=== PATIENT | female | born 1955 | race Caucasian/White ===

== ENCOUNTER 2020-01-24 16:01 | Inpatient (IN) ==
[2020-01-24] MEDS ORDERED: 0.9 % Sodium Chloride 500 ML IVC ONE (16:39)
[2020-01-24] MEDS ORDERED: 0.9 % Sodium Chloride 1,000 ML IVC SCH (16:45)
[2020-01-24 16:59] LABS: BUN/Creatinine Ratio 19 (6-26); Blood Urea Nitrogen 7 mg/dL (8-23); Calcium 8.1 mg/dL (8.6-10.3); Carbon Dioxide 29 mEq/L (23-29); Chloride 82 mEq/L (98-107); Glucose 95 mg/dL (70-105); Osmolality,Calculated 240 (280-300); Potassium 3.7 mEq/L (3.5-5.1); Sodium 116 mEq/L (136-145); eGFR For African Americans > 60 (> 60); eGFR For Non-African Americans > 60 (> 60)
[2020-01-24] MEDS ORDERED: Ondansetron 4 MG/2 ML VIAL IVP PRN (17:59)
[2020-01-24] MEDS ORDERED: Naloxone 0.4 MG/ML INJ IVP PRN (17:59)
[2020-01-24] MEDS ORDERED: Mag Hydrox/Al Hydrox/Simeth 30 ML UDC PO PRN (17:59)
[2020-01-24] MEDS ORDERED: MOM Conc 10 ML UD.LIQ PO PRN (17:59)
[2020-01-24] MEDS ORDERED: tiZANidine 4 MG TABLET PO PRN (18:01)
[2020-01-24] MEDS ORDERED: Albuterol 2.5 MG/3 ML NEBULIZER IH PRN (19:17)
[2020-01-24] MEDS ORDERED: Gabapentin 400 MG CAPSULE PO SCH (21:00)
[2020-01-24] MEDS: *HR* OxyCODONE/APAP 7.5/325 TABLET PO PRN (21:31)
[2020-01-24 22:41] LABS: BUN/Creatinine Ratio 18 (6-26); Blood Urea Nitrogen 6 mg/dL (8-23); Calcium 8.4 mg/dL (8.6-10.3); Carbon Dioxide 30 mEq/L (23-29); Chloride 90 mEq/L (98-107); Glucose 100 mg/dL (70-105); Osmolality,Calculated 258 (280-300); Potassium 3.7 mEq/L (3.5-5.1); Sodium 125 mEq/L (136-145); eGFR For African Americans > 60 (> 60); eGFR For Non-African Americans > 60 (> 60)
[2020-01-25 06:36] VITALS: BP 148/92
[2020-01-25 07:12] LABS: Basophils % 0.6 %; Eosinophils % 0.9 %; Hematocrit 30.8 % (35.3-44.9); Hemoglobin 10.8 g/dL (11.5-15.4); Immature Granulocytes % 0.3 % (0-4); Lymphocytes # 0.5 K/mcL (0.6-4.6); Lymphocytes % 15.9 %; Mean Corpuscular HGB Conc 35.1 g/dL (31.6-35.5); Mean Corpuscular Hemoglobin 30.2 pg (28.0-33.3); Mean Platelet Volume 8.7 fL (9.4-12.4); Monocytes # 0.4 K/mcL (0.0-1.3); Monocytes % 11.3 %; Neutrophils # 2.3 K/mcL (1.6-8.9); Platelet Count 284 K/mcL (140-400); Red Blood Count 3.58 M/mcL (3.82-4.97); Red Cell Distribution Width 15.4 % (11.5-14.5); White Blood Count 3.3 K/mcL (4.3-11.1)
[2020-01-25 07:20] LABS: BUN/Creatinine Ratio 16 (6-26); Blood Urea Nitrogen 5 mg/dL (8-23); Calcium 8.2 mg/dL (8.6-10.3); Carbon Dioxide 28 mEq/L (23-29); Chloride 96 mEq/L (98-107); Glucose 84 mg/dL (70-105); Osmolality,Calculated 264 (280-300); Potassium 3.8 mEq/L (3.5-5.1); Sodium 129 mEq/L (136-145); eGFR For African Americans > 60 (> 60); eGFR For Non-African Americans > 60 (> 60)
[2020-01-25] MEDS: Gabapentin 300 MG CAPSULE PO SCH ×2 (08:22→14:58)
[2020-01-25] MEDS: *HR* OxyCODONE/APAP 7.5/325 TABLET PO PRN ×2 (08:27→14:58)
[2020-01-25] MEDS ORDERED: Folic Acid 1 MG TABLET PO SCH (09:00)
[2020-01-25] MEDS ORDERED: Nicotine 14 MG PATCH.TD24 TD SCH (09:00)
[2020-01-25] MEDS ORDERED: Tiotropium Br/Olodaterol Hcl [Stiolto Respimat Inhaler] IH SCH (09:00)
[2020-01-25] MEDS ORDERED: lisinopriL 20 MG TABLET PO SCH (09:00)
[2020-01-25] MEDS: D5% in Water 500 ML IVC SCH ×3 (09:26→14:30)
[2020-01-25 10:17] LABS: BUN/Creatinine Ratio 14 (6-26); Blood Urea Nitrogen 7 mg/dL (8-23); Calcium 8.3 mg/dL (8.6-10.3); Carbon Dioxide 28 mEq/L (23-29); Chloride 95 mEq/L (98-107); Glucose 114 mg/dL (70-105); Osmolality,Calculated 267 (280-300); Potassium 3.6 mEq/L (3.5-5.1); Sodium 129 mEq/L (136-145); eGFR For African Americans > 60 (> 60); eGFR For Non-African Americans > 60 (> 60)
[2020-01-25 15:15] LABS: BUN/Creatinine Ratio 13 (6-26); Blood Urea Nitrogen 8 mg/dL (8-23); Calcium 8.4 mg/dL (8.6-10.3); Carbon Dioxide 29 mEq/L (23-29); Chloride 95 mEq/L (98-107); Glucose 75 mg/dL (70-105); Osmolality,Calculated 265 (280-300); Potassium 4.2 mEq/L (3.5-5.1); Sodium 129 mEq/L (136-145); eGFR For African Americans > 60 (> 60); eGFR For Non-African Americans > 60 (> 60)
== END 2020-01-25 16:05 | disposition home or self-care (01) | DRG 641 ==
LOC: EMEROOPIK 16:01 → INPPIK 16:01
PROVIDERS: ADMIT Family Medicine; ATTEND Family Medicine

== ENCOUNTER 2020-07-06 07:40 | Inpatient (IN) ==
[2020-07-06] MEDS ORDERED: 0.9 % Sodium Chloride 500 ML IVC ONE (08:02)
[2020-07-06 08:11] LABS: Basophils % 0.2 %; Eosinophils # 0.1 K/mcL (0.0-0.6); Eosinophils % 0.5 %; Hematocrit 33.2 % (35.3-44.9); Hemoglobin 11.5 g/dL (11.5-15.4); Immature Granulocytes % 0.3 % (0-4); Lymphocytes # 1.1 K/mcL (0.6-4.6); Lymphocytes % 11.5 %; Mean Corpuscular HGB Conc 34.6 g/dL (31.6-35.5); Mean Corpuscular Hemoglobin 31.4 pg (28.0-33.3); Mean Corpuscular Volume 90.7 fL (83.0-100.0); Mean Platelet Volume 9.5 fL (9.4-12.4); Monocytes # 0.8 K/mcL (0.0-1.3); Monocytes % 8.3 %; Neutrophils # 7.3 K/mcL (1.6-8.9); Platelet Count 327 K/mcL (140-400); Red Blood Count 3.66 M/mcL (3.82-4.97); Segmented Neutrophils % 79.2 %; White Blood Count 9.2 K/mcL (4.3-11.1)
[2020-07-06 08:19] LABS: Prothrombin Time 11.3 Seconds (9.4-12.1)
[2020-07-06 08:21] LABS: Bilirubin,Urine Negative (Negative); Blood,Urine Negative (Negative); Clarity,Urine Clear (Clear); Color,Urine Yellow (Yellow); Glucose,Urine (UA) Normal (Normal); Ketones,Urine Negative (Negative); Leukocyte Esterase,Urine Negative (Negative); Nitrite,Urine Negative (Negative); PH,Urine 6.5 pH Units (5.0-8.0); Protein,Urine Negative (Neg-Trace); Specific Gravity,Urine 1.015 (1.010-1.025); Urobilinogen,Urine Normal (Normal)
[2020-07-06 08:22] LABS: Activated Partial Thrombo Time 37.6 Seconds (26.0-36.0)
[2020-07-06 08:30] LABS: Alanine Aminotransferase 20 Units/L (7-52); Albumin 3.9 g/dL (3.5-5.7); Albumin/Globulin Ratio 1.3 (1.1-2.2); Alkaline Phosphatase 87 Units/L (34-104); Aspartate Amino Transferase 42 Units/L (13-39); BUN/Creatinine Ratio 21 (6-26); Bilirubin,Indirect 0.4 mg/dL (0.0-1.0); Bilirubin,Total 0.4 mg/dL (0.3-1.0); Blood Urea Nitrogen 11 mg/dL (8-23); Calcium 8.6 mg/dL (8.6-10.3); Carbon Dioxide 30 mEq/L (23-29); Chloride 88 mEq/L (98-107); Glucose 113 mg/dL (70-105); Osmolality,Calculated 256 (280-300); Potassium 4.2 mEq/L (3.5-5.1); Sodium 123 mEq/L (136-145); Total Protein 6.9 g/dL (6.4-8.9); eGFR For African Americans > 60 (> 60); eGFR For Non-African Americans > 60 (> 60)
[2020-07-06] MEDS: 0.9 % Sodium Chloride 1,000 ML IVC SCH ×2 (09:25→17:05)
[2020-07-06] MEDS ORDERED: *HR* OxyCODONE/APAP 10/325 TABLET PO ONE (11:13)
[2020-07-06] MEDS ORDERED: Ondansetron 4 MG/2 ML VIAL IVP PRN (13:52)
[2020-07-06] MEDS ORDERED: Naloxone 0.4 MG/ML INJ IVP PRN (13:52)
[2020-07-06] MEDS ORDERED: MOM Conc 10 ML UD.LIQ PO PRN (13:52)
[2020-07-06] MEDS ORDERED: Ondansetron ODT 4 MG TAB.RAPDIS SL PRN (13:52)
[2020-07-06] MEDS ORDERED: *HR* OxyCODONE Immed Rel 5 MG TABLET PO PRN (14:04)
[2020-07-06] MEDS ORDERED: Ketorolac 15 MG/ML VIAL IVP PRN (14:05)
[2020-07-06] MEDS: Acetylcysteine 10% 10 ML VIAL IH SCH ×2 (16:16→20:52)
[2020-07-06] MEDS: Ipratropium/Albuterol Neb 3 ML IH SCH ×2 (16:16→20:52)
[2020-07-06 16:17] LABS: BUN/Creatinine Ratio 16 (6-26); Blood Urea Nitrogen 7 mg/dL (8-23); Calcium 8.1 mg/dL (8.6-10.3); Carbon Dioxide 33 mEq/L (23-29); Chloride 95 mEq/L (98-107); Glucose 88 mg/dL (70-105); Osmolality,Calculated 271 (280-300); Sodium 132 mEq/L (136-145); eGFR For African Americans > 60 (> 60); eGFR For Non-African Americans > 60 (> 60)
[2020-07-06] MEDS: Gabapentin 300 MG CAPSULE PO SCH ×2 (17:06→21:13)
[2020-07-06] MEDS: *HR* OxyCODONE Immed Rel 5 MG TABLET PO PRN ×2 (17:11→21:14)
[2020-07-06 18:30] LABS: Sodium, Urine 26.1 mEq/L
[2020-07-07] MEDS: Ipratropium/Albuterol Neb 3 ML IH SCH ×6 (00:04→21:55)
[2020-07-07] MEDS: 0.9 % Sodium Chloride 1,000 ML IVC SCH (02:32)
[2020-07-07] MEDS: *HR* OxyCODONE Immed Rel 5 MG TABLET PO PRN ×5 (03:09→23:46)
[2020-07-07] MEDS: Acetylcysteine 10% 10 ML VIAL IH SCH ×4 (04:45→21:55)
[2020-07-07] MEDS: *HR* Enoxaparin 40 MG/0.4 ML SYRINGE SQ SCH (05:07)
[2020-07-07 07:06] LABS: Basophils % 0.2 %; Eosinophils % 0.5 %; Hematocrit 28.6 % (35.3-44.9); Hemoglobin 9.6 g/dL (11.5-15.4); Immature Granulocytes % 0.4 % (0-4); Lymphocytes # 0.7 K/mcL (0.6-4.6); Lymphocytes % 7.9 %; Mean Corpuscular HGB Conc 33.6 g/dL (31.6-35.5); Mean Corpuscular Hemoglobin 31.5 pg (28.0-33.3); Mean Corpuscular Volume 93.8 fL (83.0-100.0); Mean Platelet Volume 9.8 fL (9.4-12.4); Monocytes # 0.7 K/mcL (0.0-1.3); Neutrophils # 7.1 K/mcL (1.6-8.9); Platelet Count 270 K/mcL (140-400); Red Blood Count 3.05 M/mcL (3.82-4.97); Red Cell Distribution Width 15.9 % (11.5-14.5); White Blood Count 8.5 K/mcL (4.3-11.1)
[2020-07-07 07:26] LABS: Alanine Aminotransferase 14 Units/L (7-52); Albumin/Globulin Ratio 1.3 (1.1-2.2); Alkaline Phosphatase 70 Units/L (34-104); Aspartate Amino Transferase 29 Units/L (13-39); BUN/Creatinine Ratio 21 (6-26); Bilirubin,Total 0.3 mg/dL (0.3-1.0); Blood Urea Nitrogen 7 mg/dL (8-23); Calcium 7.4 mg/dL (8.6-10.3); Carbon Dioxide 28 mEq/L (23-29); Chloride 99 mEq/L (98-107); Chol/HDL Ratio 2.3 (0-4.9); Cholesterol 136 mg/dL (< 200); Globulin 2.3 g/dL (2.4-3.5); Glucose 82 mg/dL (70-105); HDL Cholesterol 58 mg/dL (40-59); LDL Cholesterol,Calculated 66 mg/dL (< 100); Magnesium 1.6 mg/dL (1.6-2.6); Osmolality,Calculated 273 (280-300); Phosphorous 3.3 mg/dL (2.7-4.5); Potassium 3.7 mEq/L (3.5-5.1); Sodium 133 mEq/L (136-145); Total Protein 5.3 g/dL (6.4-8.9); Triglycerides 59 mg/dL (< 150); eGFR For African Americans > 60 (> 60); eGFR For Non-African Americans > 60 (> 60)
[2020-07-07] MEDS: Gabapentin 300 MG CAPSULE PO SCH ×4 (08:46→20:20)
[2020-07-07] MEDS: Folic Acid 1 MG TABLET PO SCH (08:47)
[2020-07-07] MEDS: lisinopriL 20 MG TABLET PO SCH (08:47)
[2020-07-07] MEDS ORDERED: STIOLTO RESPIMAT AER SCH (10:00)
[2020-07-07 13:02] LABS: Folate > 22.3 ng/mL (3.0-16.0); Vitamin B12 > 1500 pg/mL (250-1100)
[2020-07-07 13:08] LABS: Vitamin D 25 Hydroxy 50 ng/mL (30-80)
[2020-07-08] MEDS: *HR* OxyCODONE Immed Rel 5 MG TABLET PO PRN ×5 (03:22→20:48)
[2020-07-08] MEDS: Ipratropium/Albuterol Neb 3 ML IH SCH ×4 (04:27→21:41)
[2020-07-08] MEDS: Acetylcysteine 10% 10 ML VIAL IH SCH ×2 (04:27→09:12)
[2020-07-08] MEDS: *HR* Enoxaparin 40 MG/0.4 ML SYRINGE SQ SCH (06:55)
[2020-07-08] MEDS: Folic Acid 1 MG TABLET PO SCH (07:54)
[2020-07-08] MEDS: lisinopriL 20 MG TABLET PO SCH (07:55)
[2020-07-08] MEDS: Gabapentin 300 MG CAPSULE PO SCH ×4 (07:55→20:38)
[2020-07-08 09:42] LABS: Basophils % 0.2 %; Eosinophils # 0.1 K/mcL (0.0-0.6); Hematocrit 30.4 % (35.3-44.9); Immature Granulocytes % 0.5 % (0-4); Lymphocytes # 0.5 K/mcL (0.6-4.6); Lymphocytes % 4.8 %; Mean Corpuscular HGB Conc 32.9 g/dL (31.6-35.5); Mean Corpuscular Hemoglobin 31.6 pg (28.0-33.3); Mean Corpuscular Volume 96.2 fL (83.0-100.0); Mean Platelet Volume 9.3 fL (9.4-12.4); Monocytes # 0.7 K/mcL (0.0-1.3); Monocytes % 5.9 %; Neutrophils # 9.7 K/mcL (1.6-8.9); Platelet Count 282 K/mcL (140-400); Red Blood Count 3.16 M/mcL (3.82-4.97); Red Cell Distribution Width 16.3 % (11.5-14.5); Segmented Neutrophils % 87.6 %; White Blood Count 11.1 K/mcL (4.3-11.1)
[2020-07-08 09:59] LABS: BUN/Creatinine Ratio 12 (6-26); Blood Urea Nitrogen 5 mg/dL (8-23); Calcium 7.8 mg/dL (8.6-10.3); Carbon Dioxide 31 mEq/L (23-29); Chloride 98 mEq/L (98-107); Glucose 112 mg/dL (70-105); Osmolality,Calculated 274 (280-300); Potassium 3.9 mEq/L (3.5-5.1); Sodium 133 mEq/L (136-145); eGFR For African Americans > 60 (> 60); eGFR For Non-African Americans > 60 (> 60)
[2020-07-08] MEDS: Acetylcysteine 10% 2 ML INHSOL IH SCH ×2 (15:35→21:42)
[2020-07-08] MEDS: levETIRAcetam 250 MG TABLET PO SCH (16:46)
[2020-07-08] MEDS: Acetaminophen 325 MG TABLET PO PRN (16:47)
[2020-07-08] MEDS: tiZANidine 4 MG TABLET PO PRN (20:48)
[2020-07-09] MEDS: *HR* OxyCODONE Immed Rel 5 MG TABLET PO PRN ×3 (01:20→14:44)
[2020-07-09 04:59] LABS: Bilirubin,Urine Negative (Negative); Blood,Urine Small (Negative); Clarity,Urine Clear (Clear); Glucose,Urine (UA) Normal (Normal); Ketones,Urine Negative (Negative); Leukocyte Esterase,Urine Negative (Negative); Nitrite,Urine Negative (Negative); PH,Urine 7.5 pH Units (5.0-8.0); Protein,Urine Negative (Neg-Trace); Urobilinogen,Urine Normal (Normal)
[2020-07-09 05:52] LABS: Color,Urine Light Yellow (Yellow)
[2020-07-09 05:53] LABS: Squamous Epithelial Cell,Urine Few per hpf (None-Few)
[2020-07-09 05:55] LABS: Bacteria,Urine Few per hpf (None-Few); WBC,Urine 0-3 per hpf (0-3)
[2020-07-09] MEDS: Ipratropium/Albuterol Neb 3 ML IH SCH ×4 (06:04→21:06)
[2020-07-09] MEDS: Acetylcysteine 10% 2 ML INHSOL IH SCH ×4 (06:04→21:07)
[2020-07-09] MEDS: levETIRAcetam 250 MG TABLET PO SCH ×2 (06:33→17:58)
[2020-07-09] MEDS: *HR* Enoxaparin 40 MG/0.4 ML SYRINGE SQ SCH (06:34)
[2020-07-09 07:22] LABS: Basophils % 0.4 %; Eosinophils # 0.1 K/mcL (0.0-0.6); Eosinophils % 1.9 %; Hematocrit 29.3 % (35.3-44.9); Hemoglobin 9.6 g/dL (11.5-15.4); Immature Granulocytes % 0.4 % (0-4); Lymphocytes # 0.7 K/mcL (0.6-4.6); Mean Corpuscular HGB Conc 32.8 g/dL (31.6-35.5); Mean Corpuscular Hemoglobin 31.1 pg (28.0-33.3); Mean Corpuscular Volume 94.8 fL (83.0-100.0); Mean Platelet Volume 9.5 fL (9.4-12.4); Monocytes # 0.5 K/mcL (0.0-1.3); Monocytes % 7.5 %; Neutrophils # 5.5 K/mcL (1.6-8.9); Platelet Count 276 K/mcL (140-400); Red Blood Count 3.09 M/mcL (3.82-4.97); Red Cell Distribution Width 16.2 % (11.5-14.5); Segmented Neutrophils % 79.8 %; White Blood Count 6.9 K/mcL (4.3-11.1)
[2020-07-09 07:23] LABS: Phenytoin Percent Free 11.4 % (8.0-14.0)
[2020-07-09 08:12] LABS: BUN/Creatinine Ratio 21 (6-26); Blood Urea Nitrogen 7 mg/dL (8-23); Calcium 8.1 mg/dL (8.6-10.3); Carbon Dioxide 35 mEq/L (23-29); Chloride 98 mEq/L (98-107); Glucose 79 mg/dL (70-105); Osmolality,Calculated 275 (280-300); Potassium 4.4 mEq/L (3.5-5.1); Sodium 134 mEq/L (136-145); eGFR For African Americans > 60 (> 60); eGFR For Non-African Americans > 60 (> 60)
[2020-07-09] MEDS: Gabapentin 300 MG CAPSULE PO SCH ×4 (09:15→20:37)
[2020-07-09] MEDS: lisinopriL 20 MG TABLET PO SCH (09:15)
[2020-07-09] MEDS: Loratadine 10 MG TABLET PO SCH (09:15)
[2020-07-09] MEDS: Folic Acid 1 MG TABLET PO SCH (09:15)
[2020-07-09] MEDS: tiZANidine 4 MG TABLET PO PRN (09:20)
[2020-07-09] MEDS: tiZANidine 4 MG TABLET PO SCH ×2 (14:43→20:37)
[2020-07-09] MEDS: Acetaminophen 325 MG TABLET PO PRN (20:37)
[2020-07-10] MEDS: *HR* OxyCODONE Immed Rel 5 MG TABLET PO PRN ×2 (02:07→08:33)
[2020-07-10] MEDS: Ipratropium/Albuterol Neb 3 ML IH SCH ×2 (04:07→09:19)
[2020-07-10] MEDS: Acetylcysteine 10% 2 ML INHSOL IH SCH ×2 (04:07→09:18)
[2020-07-10] MEDS: levETIRAcetam 250 MG TABLET PO SCH (06:42)
[2020-07-10] MEDS: *HR* Enoxaparin 40 MG/0.4 ML SYRINGE SQ SCH (06:42)
[2020-07-10 07:06] LABS: Basophils % 0.4 %; Eosinophils # 0.1 K/mcL (0.0-0.6); Eosinophils % 2.4 %; Hemoglobin 9.6 g/dL (11.5-15.4); Immature Granulocytes % 0.5 % (0-4); Lymphocytes # 0.7 K/mcL (0.6-4.6); Lymphocytes % 12.7 %; Mean Corpuscular HGB Conc 33.1 g/dL (31.6-35.5); Mean Corpuscular Hemoglobin 31.1 pg (28.0-33.3); Mean Corpuscular Volume 93.9 fL (83.0-100.0); Mean Platelet Volume 9.6 fL (9.4-12.4); Monocytes # 0.4 K/mcL (0.0-1.3); Monocytes % 7.4 %; Neutrophils # 4.2 K/mcL (1.6-8.9); Platelet Count 303 K/mcL (140-400); Red Blood Count 3.09 M/mcL (3.82-4.97); Red Cell Distribution Width 16.1 % (11.5-14.5); Segmented Neutrophils % 76.6 %; White Blood Count 5.5 K/mcL (4.3-11.1)
[2020-07-10 07:31] LABS: BUN/Creatinine Ratio 19 (6-26); Blood Urea Nitrogen 7 mg/dL (8-23); Calcium 8.3 mg/dL (8.6-10.3); Carbon Dioxide 31 mEq/L (23-29); Chloride 98 mEq/L (98-107); Glucose 74 mg/dL (70-105); Osmolality,Calculated 275 (280-300); Potassium 4.1 mEq/L (3.5-5.1); Sodium 134 mEq/L (136-145); eGFR For African Americans > 60 (> 60); eGFR For Non-African Americans > 60 (> 60)
[2020-07-10] MEDS: Loratadine 10 MG TABLET PO SCH (08:33)
[2020-07-10] MEDS: Gabapentin 300 MG CAPSULE PO SCH ×2 (08:33→13:52)
[2020-07-10] MEDS: tiZANidine 4 MG TABLET PO SCH ×2 (08:34→13:52)
[2020-07-10] MEDS: Folic Acid 1 MG TABLET PO SCH (08:34)
[2020-07-10] MEDS: lisinopriL 20 MG TABLET PO SCH (08:34)
[2020-07-10] MEDS ORDERED: Acetylcysteine 10% 10 ML VIAL IH SCH (16:00)
[2020-07-10 16:13] VITALS: BP 149/97
[2020-07-11 17:12] LABS: Phenytoin (Dilantin) Free 0.6 ug/mL (1.0-2.5)
[2020-07-11 17:12] LABS: Phenytoin (Dilantin) Free 1.1 ug/mL (1.0-2.5)
[2020-07-12 07:25] LABS: Phenytoin Percent Free 11.4 % (8.0-14.0)
== END 2020-07-10 16:28 | disposition home health service (06) | DRG 562 ==
LOC: INPPIK 07:40 → EMEROOPIK 07:40 → INPPIK 12:58
PROVIDERS: ADMIT Family Medicine; ATTEND Family Medicine